=== PATIENT | male | born 1995 | race Caucasian/White ===

== ENCOUNTER 2017-02-05 09:34 | Emergency (ER) | payer BC ==
[~2017-02-05] VITALS: Ht 190.5 cm; Wt 72.6 kg
[2017-02-05 09:46] VITALS: BP_SYST 116
[2017-02-05] MEDS ORDERED: IBUPROFEN 800 MG TABLET PO ONE (10:30)
[2017-02-05 11:05] VITALS: BP_SYST 116
== END 2017-02-05 11:05 | disposition home or self-care (01) ==
LOC: SED 09:36
DX: S42.031A Displaced fracture of lateral end of right clavicle, initial encounter for closed fracture (principal); S70.211A Abrasion, right hip, initial encounter; S00.211A Abrasion of right eyelid and periocular area, initial encounter; V09.9XXA Pedestrian injured in unspecified transport accident, initial encounter; Y93.51 Activity, roller skating (inline) and skateboarding; Y92.89 Other specified places as the place of occurrence of the external cause; Y99.8 Other external cause status
CPT/HCPCS: 71010; 73030; 99284